=== PATIENT | male | born 1975 | race Caucasian/White ===

== ENCOUNTER 2019-12-14 09:09 | Emergency (ER) | payer BC, SELFPAY ==
[2019-12-14 09:14] VITALS: PULSE 82; RESP 18; TEMP 36.5; O2SAT 97
--- NOTE | 2019-12-14 09:15 | DI.CT_ITS ---
EXAM: CT RENAL COLIC WO CLINICAL HISTORY: L flank pain. TECHNIQUE: Imaging Protocol: Axial computed tomography images with coronal and sagittal reformatted images were created and reviewed. CONTRAST MATERIAL: Intravenous: Omnipaque 350 Contrast volume:0 mL contrast route:IV - Oral: No COMPARISON: No exams were available for comparison FINDINGS: ABDOMEN: Lung Bases: Mild dependent atelectasis. Liver: Diffuse decreased attenuation consistent with hepatic steatosis. No measurable mass. Gallbladder and biliary tract: No radiodense calculus or dilation. Pancreas: Normal density, no abnormal calcifications or inflammatory process. Spleen: Normal. Kidneys: Normal size, contour and axis. 6 mm stone at the left UPJ causing mild hydronephrosis. No m asses seen. Adrenal glands: No masses seen. Abdominal Aorta: Abdominal portion non-dilated. PELVIS: Bladder: Symmetric distention, no gross wall thickening. Bowel: No obstruction or bowel wall thickening. Colonic diverticulosis. No evidence of acute diverti culitis. Normal appendix. Peritoneal cavity: No ascites, collection or mesenteric inflammatory response. Bones: Mild degenerative changes. Lymph nodes: Mildly enlarged iliac chain lymph nodes. Reproductive organs: Mildly enlarged prostate gland. IMPRESSION: 6 millimeter stone at the left UPJ causing mild hydronephrosis. The findings were discussed with the emergency department on the date of the examination. DATA REPOSITORY: All CT scans at this facility are submitted to the National Radiology Data Registry (NRDR) Dose Index Registry (DIR) with the [employer] ([employer]). RADIATION OPTIMIZATION: All CT scans at this facility use at least one of these dose optimization te chniques: automated exposure control; mA and/or kV adjustment per patient size (includes targeted exa ms where dose is matched to clinical indication); or iterative reconstruction.
--- NOTE | 2019-12-14 09:24 | ED.GENADUL_ITS ---
Discharge Plan Disposition Patient Disposition: HOME Condition: Stable Discharge Details Chief Complaint: FlankPain Clinical Impression: Renal colic on left side Primary Care Provider: Erica Vega ED Provider: Robbie Justice Home Meds and New Rx's Prescriptions: New tamsulosin [Flomax] 0.4 mg capsule 0.4 mg PO DAILY Qty: 5 RF: 0 Discharge Instructions Instructions: Renal Colic (ED) Additional Instructions: Home to rest today. Continue small, frequent sips of fluids to maintain hydration. Ibuprofen 600 to 800 mg every 6-8 hours, and/or Tylenol 650 to 1000 mg every 4-6 hours as needed for pain. Screen your urine and take any stones you may capture to your primary care physician for analysis. Take the prescribed Flomax once daily while having symptoms of kidney stone. Be aware this may make you slightly lightheaded when rising quickly to a standing position. Return if you develop a fever, vomiting, increasing pain, or any other acute concerns. 2 of your liver function tests the AST and ALT were discretely elevated today and should be rechecked by your primary care physician. Medical Decision Making 44-year-old male, states previous history of kidney stones x3. States approximate 7:30 AM he felt left lower quadrant sharp and colicky pain that radiated to his back. Associated with nausea but no emesis and no fever. His vital signs are normal, he is mildly tender in the left lower quadrant of the abdomen. Diagnosis includes renal colic, urinary tract infection. Patient had screening laboratories, urinalysis obtained, given ketorolac and a fluid bolus. Patient has hematuria, no evidence of infection. His ALT and AST are slightly elevated and will need to be followed up outpatient setting. Improved following medication. His CT reveals a 6 mm left UPJ stone. We will have him screen his urine, continue to push fluids and analgesics, follow-up with his primary care physician in [facility] for recheck. HPI General Mode of arrival: ambulatory . Date/Time Provider Initiated Documentation: 12/14/19 09:10 . Limitations to Documentation: no limitations . Information obtained by: patient . History of Present Illness 44 year old M presents to the emergency department with the chief complaint of Left flank pain, hours, described as similar to prior episodes, Quality is described as aching, and is localized to the abdomen and left. Patient reports radiation to back. Patient started experiencing this hour(s) and it has been constant. No relieving factors improve symptom(s), No exacerbating factors reported . Patient notes denies fever/chills. Patient did receive the following treatments prior to arrival, none Related Data Home Medications Medication Instructions Recorded Confirmed tamsulosin [Flomax] 0.4 mg PO DAILY #5 cap 12/14/19 Previous Rx's Medication Instructions Recorded tamsulosin [Flomax] 0.4 mg PO DAILY #5 cap 12/14/19 Allergies Allergy/AdvReac Type Severity Reaction Status Date / Time codeine Allergy Unverified 12/14/19 09:20 morphine Allergy Cardiac Unverified 12/14/19 09:20 Dysrythmia Penicillins Allergy Hives Unverified 12/14/19 09:20 General Stated Complaint: FlankPain VERA: 3 Review of Systems Narrative: 6 systems reviewed and otherwise negative [facility] Medical History (Updated 12/14/19 @ 11:02 by Robbie Justice MD) Kidney stone (Chronic) Exam Narrative Exam Narrative: GEN: awake, alert, oriented 3. Pleasant, well groomed, interactive. HEAD: Normocephalic, atraumatic ENT: Mucous membranes moist, oropharynx unremarkable, External ear exam unremarkable EYES: PERRL, EOMI NECK: Full ROM, no KEMAL, no menigismus CHEST/RESP: Nontender, clear to auscultation bilateral, no wheeze/rhonchi/rales CARDIOVASCULAR: RRR, no murmur, rub isaias. 2+ Rad pulse bilateral ABDOMEN: Soft, mild tenderness left lower quadrant, no significant rebound present, no mass. +Bowel sounds EXT: Full ROM, no edema, no rash Neuro: Grossly normal neurologic exam, conversant, interactive. Psych: Speech fluent, thoughts congruent, affect normal Course Vital Signs Vital signs: Vital Signs Temperature 36.5 C 12/14/19 09:14 Pulse 82 12/14/19 09:14 Respiratory Rate 18 12/14/19 09:14 Pulse Oximetry 97 12/14/19 09:14 Temperature 36.5 C 12/14/19 09:14 Temperature Source Skin 12/14/19 09:14 Pulse 82 12/14/19 09:14 Respiratory Rate 18 12/14/19 09:14 Respiratory Effort 12/14/19 09:21 Pulse Oximetry 97 02/14/20 09:14 Oxygen Delivery Method Room Air 12/14/19 09:14 Oxygen Flow Rate 0 12/14/19 09:14 Pain Level 10 12/14/19 09:14
[2019-12-14] MEDS: Ondansetron 4 MG/2 ML VIAL IVP (09:37)
[2019-12-14] MEDS: Ketorolac 30 MG/ML VIAL IVP (09:39)
[2019-12-14] MEDS: Normal Saline 1,000 ML 1000 ML IV (09:39)
[2019-12-14 10:08] LABS: HCT 45.7 % (40.0-50.0); HGB 15.5 g/dL (13.5-17.5); Mean Corp. HGB Concentration 33.9 g/dL (32.0-36.0); Mean Corpuscular Hemoglobin 29.8 pg (27.0-33.0); Mean Corpuscular Volume 87.9 fL (80-95); Mean Platelet Volume 10.7 fL (8.0-11.0); Platelet Count 205 x1000/uL (130-400); RBC Distribution Width 12.9 % (11.8-14.1); White Blood Cell Count 9.39 k/cumm (4.4-10.8)
[2019-12-14 10:09] LABS: ALT 155 U/L (16-63); AST 62 U/L (15-37); Albumin 4.1 g/dL (3.4-5.0); Alkaline Phosphatase 66 U/L (46-116); BUN 14 mg/dL (7-18); Bilirubin, Total 0.7 mg/dL (0.2-1.0); CREATININE 1.08 mg/dL (0.70-1.30); Calcium 8.9 mg/dL (8.5-10.1); Chloride 105 mmol/L (98-107); Glucose 100 mg/dL (74-106); Potassium 3.8 mmol/L (3.5-5.1); Sodium 141 mmol/L (136-145); Total Protein 7.5 g/dL (6.4-8.2)
[2019-12-14 10:14] LABS: Bilirubin Negative (Negative); Blood Large (Negative); Clarity Sl Cloudy (Clear); Glucose Negative (Negative); Ketones Negative (Negative); Leukocyte Esterase Negative (Negative); Nitrite Negative (Negative); Specific Gravity >= 1.030 (1.005-1.025); Urobilinogen 0.2 EU/dL (Up TO 0.2); pH 5.5 (5-8)
[2019-12-14 10:28] LABS: RBC >50 HPF (0-2); WBC 0-2 HPF (0-5)
[2019-12-14 10:29] LABS: Bacteria Many HPF (Negative); C & S Indicated? Yes; Casts Negative LPF (Negative); Crystals Negative HPF (Negative); Epithelial Cells Negative HPF (Negative); Mucus Trace (Negative); Other Cells Few Renal (Negative)
[2019-12-14 10:39] LABS: Absolute Neutrophil Count 5.16 k/cumm (1.2-6.7); Atypical Lymphocytes % 7
[2019-12-14 10:40] LABS: Absolute Eosinophil Count 0.09 k/cumm (0.0-0.7); Absolute Lymphocyte Count 3.47 k/cumm (1.2-3.4); Absolute Monocyte Count 0.66 k/cumm (0.11-0.7); Diff Comment Manual Differential; RBC Morphology Normal
[2019-12-14] MEDS: Tamsulosin 0.4 MG CAPCR PO (11:06)
== END 2019-12-14 11:13 | disposition home or self-care (01) ==
PROVIDERS: Emergency Provider Emergency Medicine; PCP Nurse Practitioner
DX: N13.2 Hydronephrosis with renal and ureteral calculous obstruction (principal); N23 Unspecified renal colic; R11.0 Nausea; Z87.442 Personal history of urinary calculi
CPT/HCPCS: 36415; 80053; 96361; 96374; 96375; 99284; 74176; 81003; 81015; 85025; 87086; J1885; J2405